=== PATIENT | female | born 1975 | race Caucasian/White ===

== ENCOUNTER 2020-10-18 14:38 | Emergency (ER) | payer OTHER ==
--- NOTE | 2020-10-18 15:07 | EDM.PDOC ---
ED HPI GENERAL MEDICAL PROBLEM - General Chief Complaint: Lower Extremity Injury/Pain Stated Complaint: HURT RT KNEE Time Seen by Provider: 10/18/20 14:53 Source of Information: Reports: Patient History Limitations: Reports: No Limitations - History of Present Illness INITIAL COMMENTS - FREE TEXT/NARRATIVE: Patient is a 45-year-old female who presents today for right knee pain. 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 Patient states today she was getting in her car and she felt a pop in her knee. Patient denies any fall or trauma any twisting of the knee. Patient denies any numbness or change in color or sensation to the knee or lower leg. Patient denies any other complaints R knee Pain Score (Numeric/FACES): 6 - Related Data Allergies Allergy/AdvReac Type Severity Reaction Status Date / Time Penicillins Allergy Other Verified 10/18/20 14:48 Home Meds: Home Meds Chlorthalidone 25 mg PO DAILY 10/18/20 [History] Cyclobenzaprine [Flexeril] 10 mg PO TID PRN 10/18/20 [History] Escitalopram Oxalate [Lexapro] 20 mg PO DAILY 10/18/20 [History] Labetalol HCl [Labetalol] 200 mg PO BID 10/18/20 [History] Potassium Chloride 10 meq PO DAILY 10/18/20 [History] rOPINIRole [Requip] 0.5 mg PO BEDTIME 10/18/20 [History] traMADol HCl [Tramadol HCl] 50 mg PO Q6HR PRN 10/18/20 [History] Past Medical History Cardiovascular History: Reports: Hypertension 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: Psychiatric History: Reports: Anxiety - Past Surgical History HEENT Surgical History: Reports: Tonsillectomy Musculoskeletal Surgical History: Reports: Carpal Tunnel Social & Family History - Family History Family Medical History: No Pertinent Family History - Caffeine Use Caffeine Use: Reports: Energy Drinks, Soda - Recreational Drug Use Recreational Drug Use: No Review of Systems - Review of Systems Review Of Systems: See Below Constitutional: Reports: No Symptoms Eyes: Reports: No Symptoms Ears: Reports: No Symptoms Nose: Reports: No Symptoms Mouth/Throat: Reports: No Symptoms Respiratory: Reports: No Symptoms Cardiovascular: Reports: No Symptoms GI/Abdominal: Reports: No Symptoms Genitourinary: Reports: No Symptoms Musculoskeletal: Reports: Leg Pain Skin: Reports: No Symptoms Neurological: Reports: No Symptoms Psychiatric: Reports: No Symptoms ED EXAM, GENERAL - Physical Exam Exam: See Below Exam Limited By: No Limitations General Appearance: Alert, WD/WN, No Apparent Distress Respiratory/Chest: No Respiratory Distress, Lungs Clear Cardiovascular: Regular Rate, Rhythm Peripheral Pulses: 2+: Popliteal (L), Popliteal (R), Dorsalis Pedis (L), Dorsalis Pedis (R) GI/Abdominal: Normal Bowel Sounds, Soft Extremities: Normal Inspection, Normal Range of Motion, Non-Tender, No Pedal Edema. No: Joint Swelling Neurological: Alert, Oriented Course - Vital Signs Last Recorded V/S: Last Vital Signs Temp 98.2 F 10/18/20 14:54 Pulse 87 10/18/20 14:54 Resp 18 10/18/20 14:54 BP 148/62 H 10/18/20 14:54 Pulse Ox 97 10/18/20 14:54 - Re-Assessments/Exams Free Text/Narrative Re-Assessment/Exam: 10/18/20 15:59 Patient x-ray shows no fractures or joint effusion. Results given to patient and told her we can have her follow-up with orthopedics but we will see any concerning findings for the knee at the moment. We will also send patient home with crutches. What you are ordering crutches Why you are ordering it knee sprain difficulty ambulating How it will benefit patient Assist with ambulating How long is patient to use it 7-10 days Departure - Departure Time of Disposition: 16:00 Disposition: Home, Self-Care 01 Condition: Good Clinical Impression: Knee sprain - Discharge Information *PRESCRIPTION DRUG MONITORING PROGRAM REVIEWED*: Not Applicable *COPY OF PRESCRIPTION DRUG MONITORING REPORT IN PATIENT MAURA: Not Applicable Instructions: Knee Sprain, Adult, [id number] Referrals: PCP,None [Primary Care Provider] - Forms: ED Department Discharge Additional Instructions: The following information is given to patients seen in the emergency department who are being discharged to home. This information is to outline your options for follow-up care. We provide all patients seen in our emergency department with a follow-up referral. The need for follow-up, as well as the timing and circumstances, are variable depending upon the specifics of your emergency department visit. If you don't have a primary care physician on staff, we will provide you with a referral. We always advise you to contact your personal physician following an emergency department visit to inform them of the circumstance of the visit and for follow-up with them and/or the need for any referrals to a consulting specialist. The emergency department will also refer you to a specialist when appropriate. This referral assures that you have the opportunity for follow-up care with a specialist. All of these measure are taken in an effort to provide you with optimal care, which includes your follow-up. Under all circumstances we always encourage you to contact your private physician who remains a resource for coordinating your care. When calling for follow-up care, please make the office aware that this follow-up is from your recent emergency room visit. If for any reason you are refused follow-up, please contact the [facility] Emergency Department at and asked to speak to the emergency department charge nurse. Please follow up with your primary care physician. If you do not have a primary care physician, see below: [facility] [address], [address] [place] [address] Please follow-up with the orthopedic surgeon next week if you have any increased pain or difficulty walking please return to the ED. Sepsis Event Note (ED) - Evaluation Sepsis Screening Result: No Definite Risk - Focused Exam Vital Signs: Vital Signs Temp Pulse Resp BP Pulse Ox 10/18/20 14:54 98.2 F 87 18 148/62 H 97 - Assessment/Plan Assessment:: Patient is a 45-year-old female who presents today for right knee pain status post hearing a pop in her knee. Patient had no trauma to the leg. There is no swelling or decreased range of motion. Will obtain x-ray and reassess.
--- NOTE | 2020-10-18 15:43 | CR ---
Indication: Injury and pain. Technique: Right knee 3 views Comparison: None Findings: Bones: Alignment is normal. No fractures or bone lesions. Joint spaces: No joint effusion. Joint spaces are well maintained. No degenerative changes. Soft tissues: Unremarkable. Impression: No sign of acute injury. Dictated by Jamie Veronica MD @ Oct 18 2020 3:39PM Signed by Dr. Jamie Veronica @ Oct 18 2020 3:41PM
== END 2020-10-18 16:15 | disposition home or self-care (01) ==
LOC: MW.ED 14:38
DX: S83.91XA Sprain of unspecified site of right knee, initial encounter (principal); I10 Essential (primary) hypertension; Z88.0 Allergy status to penicillin; Z79.899 Other long term (current) drug therapy; X58.XXXA Exposure to other specified factors, initial encounter
CPT/HCPCS: 73562-26-RT; 73562-RT; 99282; 99283-25